=== PATIENT | female | born 1985 | race Caucasian/White ===

== ENCOUNTER → 2017-02-13 | Outpatient (CLI) | payer OTHER | LOC: LAB 17:48 | DX: N91.2 Amenorrhea, unspecified (principal) | CPT/HCPCS: 36415; 84702 ==

== ENCOUNTER → 2017-03-27 | Outpatient (CLI) | payer OTHER | LOC: LAB 06:43 | DX: N91.2 Amenorrhea, unspecified (principal) | CPT/HCPCS: 36415; 84702 ==

== ENCOUNTER 2017-07-26 11:54 | Observation (INO) | payer OTHER ==
[~2017-07-26] VITALS: Ht 162.6 cm; Wt 72.6 kg
[2017-07-26 12:48] LABS: HEMOGLOBIN 10.7 gm/dl (12.3-15.3); RED BLOOD COUNT 3.59 M/UL (4.00-5.10); WHITE BLOOD COUNT 12.2 K/UL (4.5-11.0)
[2017-07-26 13:11] LABS: BUN/CREATININE RATIO 8 (0-10)
== END 2017-07-26 20:12 | disposition home or self-care (01) ==
LOC: GENOP 11:54 → OB 12:24
PROVIDERS: ADMIT Obstetrics & Gynecology
DX: O99.89 Other specified diseases and conditions complicating pregnancy, childbirth and the puerperium (principal); R31.0 Gross hematuria; Z3A.21 21 weeks gestation of pregnancy; Z87.442 Personal history of urinary calculi; Z91.040 Latex allergy status
CPT/HCPCS: 36415; 80053; 81001; 85025; 87086; 96360; 96361; G0378; J7120

== ENCOUNTER 2020-12-31 23:38 | Emergency (ER) | payer BC, OTHER ==
[~2020-12-31 23:38] MED LIST: PHENERGAN 25 MG25 M1 PO
== END 2021-01-01 00:53 | disposition left against medical advice (07) ==
LOC: ER1 23:38
DX: Z53.21 Procedure and treatment not carried out due to patient leaving prior to being seen by health care provider (principal)

== ENCOUNTER 2021-08-02 03:25 | Emergency (ER) | payer SELFPAY ==
[2021-08-02 04:01] LABS: HEMOGLOBIN 13.2 gm/dl (12.3-15.3); RED BLOOD COUNT 4.3 M/UL (4.00-5.10); WHITE BLOOD COUNT 12.2 K/UL (4.5-11.0)
[2021-08-02 04:31] LABS: BUN/CREATININE RATIO 11 (0-10)
[2021-08-02] MEDS ORDERED: ZOFRAN ODT 4 MG4 MG GT (05:09)
[2021-08-02] MEDS ORDERED: TORADOL 10 MG T10 MG PO (05:09)
== END 2021-08-02 05:29 | disposition home or self-care (01) ==
LOC: ER1 03:25
PROVIDERS: Family Medicine
DX: R10.9 Unspecified abdominal pain (principal); Z87.442 Personal history of urinary calculi
CPT/HCPCS: 80053; 81001; 83690; 85025; 96374; 96375; 99284; J1885; J2405

== ENCOUNTER 2021-11-20 09:53 | Emergency (ER) | payer BC ==
[~2021-11-20 09:53] MED LIST changes: +TORADOL 10 MG T10 MG PO; +ZOFRAN ODT 4 MG4 MG GT
[2021-11-20 10:56] LABS: HEMOGLOBIN 14.2 gm/dl (12.3-15.3); RED BLOOD COUNT 4.71 M/UL (4.00-5.10); WHITE BLOOD COUNT 8.9 K/UL (4.5-11.0)
[2021-11-20 13:00] LABS: BUN/CREATININE RATIO 15 (0-10)
[2021-11-20] MEDS ORDERED: BENTYL 20MG TAB20 MG PO (15:13)
[2021-11-20] MEDS ORDERED: ZOFRAN ODT 4 MG4 MG SL (15:13)
== END 2021-11-20 15:32 | disposition home or self-care (01) ==
LOC: ER1 09:53
PROVIDERS: Physician Assistant Medical
DX: R10.9 Unspecified abdominal pain (principal); R11.2 Nausea with vomiting, unspecified; F17.210 Nicotine dependence, cigarettes, uncomplicated; Z87.442 Personal history of urinary calculi
CPT/HCPCS: 80053; 81001; 85025; 96374; 96375; 99284; J1885; J2405; J7030